=== PATIENT | male | born 1985 | race Caucasian/White ===

== ENCOUNTER 2021-10-19 00:08 | Emergency (ER) | payer OTHER ==
[~2021-10-19] VITALS: Ht 170.2 cm; Wt 106.6 kg
[2021-10-19 00:20] VITALS: BP 152/82
[2021-10-21] MEDS ORDERED: ONDANSETRON HCL/PF 4 MG/2 ML VIAL ONE (04:58)
[2021-10-21] MEDS ORDERED: IBUPROFEN 400 MG TABLET ONE (04:58)
== END 2021-10-19 01:58 | disposition home or self-care (01) ==
LOC: ER 00:18
DX: S61.216A Laceration without foreign body of right little finger without damage to nail, initial encounter (principal); W26.0XXA Contact with knife, initial encounter; Y93.89 Activity, other specified; Y92.89 Other specified places as the place of occurrence of the external cause; Y99.8 Other external cause status
CPT/HCPCS: J2405